=== PATIENT | male | born 1985 | race Caucasian/White ===

== ENCOUNTER 2017-03-28 15:19 | Emergency (ER) | payer MEDICAID ==
[~2017-03-28] VITALS: Ht 167.6 cm; Wt 92.5 kg
[2017-03-28 15:24] VITALS: Ht 167.6 cm; Wt 92.5 kg
[2017-03-28 18:45] LABS: BASOPHIL % 0.3 % (0-2); PLATELET COUNT 242 x10^3mcL (130-400); RED CELL DISTRIBUTION WIDTH 13.8 % (11.5-14.5)
[2017-03-28 18:52] LABS: CALCIUM 8.6 mg/dL (8.5-10.1); CARBON DIOXIDE 25.9 mmol/L (21-32); CHLORIDE SERUM 103 mmol/L (98-107); CREATININE SERUM 1.2 mg/dL (0.7-1.3); GFR1 > 60 mL/min; GLUCOSE SERUM 79 mg/dL (74-106); POTASSIUM SERUM 3.6 mmol/L (3.5-5.1); SODIUM SERUM 139 mmol/L (136-145)
[2017-03-28 18:56] LABS: ALBUMIN 3.8 g/dL (3.4-5.0); ALKALINE PHOSPHATASE 78 U/L (46-116); ALT/SGPT 36 U/L (16-63); AST/SGOT 22 U/L (15-37); BILIRUBIN TOTAL 0.29 mg/dL (0.20-1.00); LIPASE 236 IU/L (73-393); TOTAL PROTEIN, SERUM 7.8 g/dL (6.4-8.2)
[2017-03-28 18:57] LABS: AMYLASE 122 U/L (25-115)
[2017-03-28 19:56] VITALS: BP 133/78
== END 2017-03-28 20:33 | disposition home or self-care (01) ==
LOC: ED 15:19
PROVIDERS: Emergency Medicine
DX: K62.5 Hemorrhage of anus and rectum (principal); R19.7 Diarrhea, unspecified; J45.909 Unspecified asthma, uncomplicated
CPT/HCPCS: 36415; 83880; 87046; 87046-59

== ENCOUNTER 2017-03-30 15:23 | Emergency (ER) | payer MEDICAID ==
[~2017-03-30] VITALS: Ht 167.6 cm; Wt 93.9 kg
[2017-03-30 15:32] VITALS: BP 130/59; Ht 167.6 cm; Wt 93.9 kg
[2017-03-30 16:52] LABS: BASOPHIL % 0.4 % (0-2); PLATELET COUNT 223 x10^3mcL (130-400); RED CELL DISTRIBUTION WIDTH 13.6 % (11.5-14.5)
[2017-03-30 17:02] LABS: CHLORIDE SERUM 102 mmol/L (98-107); POTASSIUM SERUM 4.2 mmol/L (3.5-5.1)
[2017-03-30 17:25] LABS: CALCIUM 8.1 mg/dL (8.5-10.1); CREATININE SERUM 1.1 mg/dL (0.7-1.3); GFR1 > 60 mL/min; GLUCOSE SERUM 91 mg/dL (74-106); SODIUM SERUM 138 mmol/L (136-145)
[2017-03-30 17:29] LABS: ALBUMIN 3.3 g/dL (3.4-5.0); ALKALINE PHOSPHATASE 69 U/L (46-116); ALT/SGPT 34 U/L (16-63); AST/SGOT 18 U/L (15-37); BILIRUBIN TOTAL 0.2 mg/dL (0.20-1.00); TOTAL PROTEIN, SERUM 6.6 g/dL (6.4-8.2)
== END 2017-03-30 18:24 | disposition home or self-care (01) ==
LOC: ED 15:23
PROVIDERS: Emergency Medicine
DX: A04.9 Bacterial intestinal infection, unspecified (principal)
CPT/HCPCS: J0696